=== PATIENT | female | born 1945 | race African-American/Black ===

== ENCOUNTER 2018-01-17 15:29 | Emergency (ER) | payer MEDICARE, MEDICAID ==
[~2018-01-17] VITALS: Ht 162.6 cm; Wt 68.0 kg
[2018-01-17] MEDS ORDERED: NKM (15:37)
[2018-01-17 15:45] VITALS: BP 139/71
--- NOTE | 2018-01-17 16:10 | Emergency Room Report ---
History of Present Illness General Chief Complaint: Skin Rash/Abscess Source: Patient Present Illness HPI 72-year-old female patient presented ER complaining of swelling over right foot for the past 3 days. Reports mild erythema and edema noted. Reports no recent trauma or injury. Denies calf pain. Denies chest pain, shortness of breath, other acute symptoms. Denies history of diabetes. Reports that she has small bug bites elsewhere on her legs and wondering if bite cause symptoms. Denies pain. Reports pruritus at site of swelling. States that she contacted a nursing phone line and was instructed by them to report to the ER to rule out a septic joint. Denies fever. reports history of osteoarthritis and arthritis. Denies history of gout. reports has not taken any medications for relief of symptoms. Allergies: Coded Allergies: No Known Allergies (Unverified , 01/17/18) Patient History Past Medical History: see triage record Reviewed Nursing Documentation: PMH: Agreed; PSxH: Agreed Nursing Documentation-PMH Past Medical History: No History, Except For Review of Systems All Other Systems: negative except mentioned in HPI Physical Exam Vital Signs Date Time Temp Pulse Resp B/P (MAP) Pulse Ox O2 Delivery O2 Flow Rate FiO2 01/17/18 15:33 97.9 79 14 139/71 94 Room Air 97.9 Sp02 EP Interpretation: reviewed, normal General Appearance: well appearing, no apparent distress, alert, GCS 15, non- toxic Head: normocephalic, atraumatic Eyes: bilateral eye normal inspection, bilateral eye PERRL ENT: hearing grossly normal, normal pharynx, no angioedema, normal voice, uvula midline, moist mucus membranes Neck: full range of motion Respiratory: lungs clear, normal breath sounds, no rhonchi, no respiratory distress, no accessory muscle use, no wheezing, speaking full sentences Cardiovascular #1: regular rate, rhythm, no edema Cardiovascular #2: 2+ dorsalis pedis (R), 2+ dorsalis pedis (L) Musculoskeletal: back normal, digits/nails normal, gait/station normal, normal range of motion, non-tender, no calf tenderness, Audrey's Sign negative, swelling , other - NVI, SILT Neurologic: alert, oriented x3, responsive, motor strength/tone normal, sensory intact Psychiatric: mood/affect normal Skin: other - erythematous urticaria noted over right lateral foot distal to ankle, no crepitus, no warmth to touch, no bite lockett noted, no fluctuance or induration; multiple small less than 1 cm areas of erythematous urticaria with excoriations noted on posterior legs, no surrounding tissue erythema or edema, no draining, scabbing noted Medical Decision Making PA Attestation Dr. Giraldo is my supervising Physician whom patient management has been discussed with. Diagnostic Impression: Primary Impression: Bug bite ER Course Pt. presents to the ED c/o right foot swelling and itchiness. Ddx considered but are not limited to fracture, sprain, strain, contusion, bug bite, arthritis, osteoarthritis, contact dermatitis, necrotizing fasciitis, gout. No erythema, no warmth to touch, no fever, no crepitus, nontoxic appearing, low suspicion for septic joint. Vital signs: are WNL, pt. is afebrile Ordered X-ray and medication. ER COURSE Provided with pain medication. An X-ray of the right foot shows no acute disease, soft tissue swelling noted, no subcutaneous gas, per the preliminary reading. Physical exam benign, no tenderness to palpation, full range of motion, no warmth to touch, low suspicion for sprain, strain, septic joint. no induration or fluctuance, does not come to a point, low suspicion for abscess formation. Due to presence of multiple bug bites on legs and patient complains of pruritus at site of ankle, likely localized skin reaction secondary to irritation or bug bite. will provide medications for its relief. Do not apply topical steroid to face or skin creases. Do not scratch her age, apply cool compresses. Do not scratch her itch. Apply cool compresses and ice packs for swelling, elevate leg. ER precautions given, return to ER for new or worsening of symptoms including but not limited to pain, snaring of redness and swelling, red streaking, fever , chest pain, shortness of breath. Patient instructed on RICE method: rest, ice, compression, elevation. Patient instructed on rest, ice and heat. Patient instructed to be WBAT Followup with primary care provider. Discuss referral to ortho/pain management/ PT as needed. Discuss further imaging with MRI/CT as needed. DISCHARGE: -Rx provided for cetirizine itching symptoms Rx provide for hydrocortisone cream At this time pt. is stable for d/c to home. Patient is resting comfortably, in no acute distress, nontoxic appearing, talking without difficulty. Will provide printed patient care instructions, and any necessary prescriptions. Patient instructed to follow with primary care provider in 3 - 5 days and to request further follow-up as needed. Care plan and follow up instructions have been discussed with the patient prior to discharge. Take medications as directed. Patient questions asked and answered. Patient reports understanding and agreement to treatment plan. ER precautions given, patient instructed to return to ER immediately for any new or worsening of symptoms. - Please note that this Emergency Department Report was dictated using [employer] Softwarevehicle inspector technology software, occasionally this can lead to erroneous entry secondary to interpretation by the dictation equipment. Other X-Ray Diagnostic Results Other X-Ray Diagnostic Results : X-Ray ordered: foot right # of Views/Limited Vs Complete: 3 View Indication: Pain EP Interpretation: Yes PA Xray: Interpretation reviewed, by supervising MD, and agrees with findings. Interpretation: no dislocation, no fractures, other - soft tissue swelling Impression: Other - soft tissue swelling PA Scribe Text Partha Go PA-C Last Vital Signs Date Time Temp Pulse Resp B/P (MAP) Pulse Ox O2 Delivery O2 Flow Rate FiO2 01/17/18 15:45 97.9 14 139/71 94 Room Air 97.9 01/17/18 15:33 79 Disposition: HOME, SELF-CARE Condition: Stable Scripts Hydrocortisone 2% Cream (ANTI-ITCH 2% CREAM) Y Cr 28 GM TP BID, #28 GM Prov: Chadd Go 01/17/18 Cetirizine Hcl* (ZYRTEC*) 10 Mg Tablet 10 MG ORAL DAILY, #30 TAB 0 Refills Prov: Chadd Go 01/17/18 Patient Instructions: Insect Bite, [id number] Additional Instructions: Patient instructed to follow up with primary care provider and discuss further treatment and referral at that time. Patient instructed on RICE method: rest, ice, compression, elevation. Patient instructed to WBAT. Take medications as directed. Patient questions asked and answered. ER precautions given, patient instructed to return to ER immediately for any new or worsening of symptoms. Chadd Go Jan 17, 2018 16:10
[2018-01-17] MEDS ORDERED: Acetaminophen 500mg (ES) tab ORAL ONE (16:15)
[2018-01-17] MEDS ORDERED: ANTI-ITCH28 G1 TP (16:38)
[2018-01-17] MEDS ORDERED: ZYRTEC10 MG ORAL (16:38)
[2018-01-17 16:46] VITALS: BP 133/69
--- NOTE | 2018-01-18 08:49 | Diagnostic Imaging Report ---
Indication: Pain and swelling Technique: 3 views right foot Comparison: none Findings: No acute fractures. No dislocations. The joint spaces are preserved. Impression: Negative
== END 2018-01-17 17:01 | disposition home or self-care (01) ==
LOC: EMR 16:09
DX: S90.861A Insect bite (nonvenomous), right foot, initial encounter (principal); Y92.89 Other specified places as the place of occurrence of the external cause; W57.XXXA Bitten or stung by nonvenomous insect and other nonvenomous arthropods, initial encounter; Y92.9 Unspecified place or not applicable; L50.9 Urticaria, unspecified
CPT/HCPCS: 99283